=== PATIENT | male | born 1995 | race African-American/Black ===

== ENCOUNTER 2018-03-07 19:29 | Emergency (ER) | payer OTHER ==
[~2018-03-07] VITALS: Ht 175.3 cm; Wt 81.7 kg
[2018-03-07] MEDS ORDERED: MONT5TCH (19:35)
[2018-03-07] MEDS ORDERED: ALBU90OI INH (19:35)
[2018-03-07] MEDS ORDERED: CEPH500 PO (20:45)
== END 2018-03-07 21:00 | disposition home or self-care (01) ==
LOC: ER 19:29
DX: S92.422A Displaced fracture of distal phalanx of left great toe, initial encounter for closed fracture (principal); S91.212A Laceration without foreign body of left great toe with damage to nail, initial encounter; Z23 Encounter for immunization; Z88.6 Allergy status to analgesic agent; W22.8XXA Striking against or struck by other objects, initial encounter
CPT/HCPCS: 11730; 73660; 90471; 90714; 99283-25